=== PATIENT | female | born 1965 | race Native Hawaiian/Other Pacific Islander ===

== ENCOUNTER 2019-02-04 17:55 | Emergency (ER) | payer OTHER ==
[~2019-02-04] VITALS: Ht 147.3 cm; Wt 52.2 kg
[2019-02-04 21:34] VITALS: BP 140/99; TEMP 98.3
== END 2019-02-04 21:50 | disposition home or self-care (01) ==
LOC: ED 17:55
DX: B07.0 Plantar wart (principal)
CPT/HCPCS: 99282